=== PATIENT | female | born 1990 | race Native Hawaiian/Other Pacific Islander ===

== ENCOUNTER 2017-11-28 08:07 | Inpatient (IN) | payer SELFPAY ==
[2017-11-28] VITALS (43 sets, daily range): BP systolic 89–125; BP diastolic 52–93; PULSE 63–96; RESP 16–18; TEMP 97.7–98.5; O2SAT 96–98
[~2017-11-28] VITALS: Ht 165.1 cm; Wt 84.0 kg
[~2017-11-28 08:07] MED LIST: PREN0.01 PO
[2017-11-28] MEDS ORDERED: TERBUTALINE INJ 1 MG/ML AMP ONE (08:42)
[2017-11-28] MEDS ORDERED: fentaNYL 2MCG-BUPIV 0.125% INJ 100 ML ONE ×2 (08:43→12:16)
[2017-11-28 09:14] LABS: BILIRUBIN, URINE NEG (NEG); BLOOD, URINE NEG (NEG); GLUCOSE,URINE NEG (NEG); KETONE, URINE NEG (NEG); MUCUS URINE FEW /lpf (OCC); NITRITE,URINE NEG (NEG); SQUAMOUS EPITHELIAL CELL URINE 2 /hpf (0-5); URINE COLOR LIGHT-YELLOW (YELLW/STRAW); URINE LEUKOCYTE ESTERASE MOD (NEG)
[2017-11-28 09:15] LABS: BASOPHIL % 0.3 % (0.0-2.0); EOSINOPHIL # 0.1 TH/MM3 (0-0.4); EOSINOPHIL % 0.7 % (0.0-4.0); HEMATOCRIT 38.2 % (35.0-46.0); HEMOGLOBIN 12.8 GM/DL (11.6-15.3); LYMPHOCYTE # 1.8 TH/MM3 (1.0-4.8); MEAN CELL VOLUME 83.3 FL (80.0-100.0); MEAN CORPUSCULAR HGB CONC 33.6 % (32.0-36.0); MEAN PLATELET VOLUME 9.9 FL (7.0-11.0); MONO % 6.8 % (0.0-8.0); MONOCYTE # 0.6 TH/MM3 (0-0.9); NEUT % 71.2 % (16.0-70.0); PLATELET COUNT 216 TH/MM3 (150-450); RED BLOOD COUNT 4.59 MIL/MM3 (4.00-5.30); RED CELL DISTRIBUTION WIDTH 13.4 % (11.6-17.2); WHITE BLOOD COUNT 8.4 TH/MM3 (4.0-11.0)
--- NOTE | 2017-11-28 09:56 | PD.OB.ANTE ---
Subjective Interval History 27 yo muslum at 38 weeks with polyhydramnios brought in by Dr. Armstrong for attempted version. Marked polyhydramnios in office yesterday with pita breech. This was only her 2nd visit with us; care had shelia in [facility]. However her first and delivery were with us 3 years ago-- healthy boy but that also had polyhyramdnios. Glucola normal and GBS neg. Today prior to version bed side sonogram shows vertex floating. Strip category one. Feeling well. No contractions, leaking or bleeding. normotensive and no DSOUZA, N, V , Blurred vision. Objective Lab & Micro Results Test 11/28/17 08:30 White Blood Count 8.4 TH/MM3 Red Blood Count 4.59 MIL/MM3 Hemoglobin 12.8 GM/DL Hematocrit 38.2 % Mean Corpuscular Volume 83.3 FL Mean Corpuscular Hemoglobin 28.0 PG Mean Corpuscular Hemoglobin Concent 33.6 % Red Cell Distribution Width 13.4 % Platelet Count 216 TH/MM3 Mean Platelet Volume 9.9 FL Neutrophils (%) (Auto) 71.2 % Lymphocytes (%) (Auto) 21.0 % Monocytes (%) (Auto) 6.8 % Eosinophils (%) (Auto) 0.7 % Basophils (%) (Auto) 0.3 % Neutrophils # (Auto) 6.0 TH/MM3 Lymphocytes # (Auto) 1.8 TH/MM3 Monocytes # (Auto) 0.6 TH/MM3 Eosinophils # (Auto) 0.1 TH/MM3 Basophils # (Auto) 0.0 TH/MM3 CBC Comment DIFF FINAL Differential Comment Urine Color LIGHT-YELLOW Urine Turbidity CLEAR Urine pH 6.0 Urine Specific [place] 1.010 Urine Protein NEG mg/dL Urine Glucose (UA) NEG mg/dL Urine Ketones NEG mg/dL Urine Occult Blood NEG Urine Nitrite NEG Urine Bilirubin NEG Urine Urobilinogen LESS THAN 2.0 MG/DL Urine Leukocyte Esterase MOD Urine RBC LESS THAN 1 /hpf Urine WBC 3 /hpf Urine Squamous Epithelial Cells 2 /hpf Urine Mucus FEW /lpf Microscopic Urinalysis Comment CULT NOT INDICATED Urine Opiates Screen NEG Urine Barbiturates Screen NEG Urine Amphetamines Screen NEG Urine Benzodiazepines Screen NEG Urine Cocaine Screen NEG Urine Cannabinoids Screen NEG Physical Exam GENERAL: Well-nourished, well-developed patient. CARDIOVASCULAR: Regular rate and rhythm without murmurs, gallops, or rubs. RESPIRATORY: Breath sounds equal bilaterally. No accessory muscle use. ABDOMEN/GI: Abdomen soft, non-tender. FH 41 ballotable and longitudinal lie sono vertex strip category one arom clear and infant well applied before leaving room 3/50% -3 efw is 7 pounds pelvis proven EXTREMITIES: No cyanosis or edema, non-tender, without signs of DVT. Assessment and Plan Assessment and Plan anticipate pitocin and epidural as needed. Keara Fisher MD Nov 28, 2017 09:56
--- NOTE | 2017-11-28 09:59 | HHI.HP ---
HPI Chief Complaint Version Travel History International Travel<30 Days: Yes Contact w/Intl Traveler<30Days: Yes Known Affected Area: No History of Present Illness HPI Pt is a 27 yo with iup at 37w6 with polyhydramnios seen in office on and noted to be pita breech. She had been cephalic on prior exam. She received care in [facility], min records received. She did deliver with us last . She feels good movement, irreg ctx, no vb or lof. 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 Fisher Past Surgical History Surgical History: No Previous Surgery Family History Family History: Negative Social History Alcohol Use: No Tobacco Use: No Substance Abuse: No Allergies-Medications (Allergen,Severity, Reaction): Coded Allergies: No Known Allergies (Unverified , 11/26/14) Home Meds Reported Medications Multivit/Min/Fol Ac/Iron/Pren ( Vit ( Plus)) Tab, 1 TAB PO DAILY, TAB 11/24/14 Review of Systems General / Constitutional: No: Fever, Weight Gain, Chills, Other Eyes: No: Diploplia, Blurred Vision, Visual changes, Pain, Photophobia HENT: No: Headaches, Vertigo, Lightheadedness Cardiovascular: No: Irregular Rhythm, Chest Pain or Discomfort, Palpitations, Tachycardia, Syncope, Varicosities, Edema, Cyanosis Respiratory: No: Cough, Short of Breath, Other Gastrointestinal: No: Nausea, Vomiting, Diarrhea Genitourinary: No: Decreased Urinary Output, Oliguria Musculoskeletal: No: Limited ROM, Weakness, Cramping, Edema, Pain Skin: No Rash, No Itching, No Dryness, No Lumps, No Change in Pigmentation, No Change in Nails, No Alopecia, No Lesions Neurologic: No: Weakness, Dizziness, Syncope, Focal Abnormalities, Coordination Problem, Headache, Slurred Speech, Seizures Psychiatric: No: Depression, Suicidal Ideations, Homicidal Ideation Endocrine: No: Heat Intolerance, Cold Intolerance, Polydipsia, Polyuria, Other Physical Exam Narrative GENERAL: Well-nourished, well-developed patient. SKIN: Warm and dry. HEAD: Normocephalic and atraumatic. EYES: No scleral icterus. No injection or drainage. ENT: No nasal drainage noted. Mucous membranes pink. Airway patent. NECK: Supple, trachea midline. No JVD. CARDIOVASCULAR: Regular rate and rhythm without murmurs, gallops, or rubs. RESPIRATORY: Breath sounds equal bilaterally. No accessory muscle use. ABDOMEN/GI: Abdomen soft, non-tender, bowel sounds present, no rebound, no guarding Gravid to 39weeks size Fundal Height: [-] GENITOURINARY: External Genitalia: intact and normal in appearance BUS glands: [-] Cervix:1-2//-3 Presentation:pita breech Membranes: [intact Uterine Contractions: [-] FHT's: wnl. U/S GA 37w6d, EDC 12/11/17 EFW 7lb 1 oz (c/w pt stated edc of 12/12/16 ) EXTREMITIES: No cyanosis or edema. BACK: Nontender without obvious deformity. No CVA tenderness. NEUROLOGICAL: Awake and alert. Motor and sensory grossly within normal limits. Five out of 5 muscle strength in all muscle groups. Normal speech. Caprini VTE Risk Assessment Caprini VTE Risk Assessment: No/Low Risk (score <= 1) Caprini Risk Assessment Model Point Value = 1 Point Value = 2 Point Value = 3 Point Value = 5 Age 41-60 Minor surgery BMI > 25 kg/m2 Swollen legs Varicose veins or History of unexplained or recurrent spontaneous Oral contraceptives or hormone replacement Sepsis (< 1 month) Serious lung disease, including pneumonia (< 1 month) Abnormal pulmonary function Acute myocardial infarction Congestive heart failure (< 1 month) History of inflammatory bowel disease Medical patient at bed rest Age 61-74 Arthroscopic surgery Major open surgery (> 45 min) Laparoscopic surgery (> 45 min) Malignancy Confined to bed (> 72 hours) Immobilizing plaster cast Central venous access Age >= 75 History of VTE Family history of VTE Factor V Leiden Prothrombin [id number] Lupus anticoagulant Anticardiolipin antibodies Elevated serum homocysteine Heparin-induced thrombocytopenia Other congenital or acquired thrombophilia Stroke (< 1 month) Elective arthroplasty Hip, pelvis, or leg fracture Acute spinal cord injury (< 1 month) Prophylaxis Regimen Total Risk Factor Score Risk Level Prophylaxis Regimen 0-1 Low Early ambulation 2 Moderate Order ONE of the following: *Sequential Compression Device (SCD) *Heparin 5000 units SQ BID 3-4 Higher Order ONE of the following medications: *Heparin 5000 units SQ TID *Enoxaparin/Lovenox 40 mg SQ daily (WT < 150 kg, CrCl > 30 mL/min) *Enoxaparin/Lovenox 30 mg SQ daily (WT < 150 kg, CrCl > 10-29 mL/min) *Enoxaparin/Lovenox 30 mg SQ BID (WT < 150 kg, CrCl > 30 mL/min) AND/OR *Sequential Compression Device (SCD) 5 or more Highest Order ONE of the following medications: *Heparin 5000 units SQ TID (Preferred with Epidurals) *Enoxaparin/Lovenox 40 mg SQ daily (WT < 150 kg, CrCl > 30 mL/min) *Enoxaparin/Lovenox 30 mg SQ daily (WT < 150 kg, CrCl > 10-29 mL/min) *Enoxaparin/Lovenox 30 mg SQ BID (WT < 150 kg, CrCl > 30 mL/min) AND *Sequential Compression Device (SCD) Data Data Vital Signs Reviewed: Yes Orders Orders Terbutaline Inj (Brethine Inj) (11/28/17 08:42) Fentanyl Inj (Fentanyl Inj) (11/28/17 08:43) Ob (2e) Additional Admit Info (11/28/17 08:42) Fentanyl 2mcg-Bupiv 0.125% Inj (Fentanyl (11/28/17 08:43) Fentanyl Inj (Fentanyl Inj) (11/28/17 08:50) Urinalysis - C+S If Indicated (11/28/17 08:52) Specimen To Be Collected PRN (11/28/17 08:52) Ob/Psych Drug Screen, Urine (11/28/17 08:52) Complete Blood Count With Diff (11/28/17 08:52) Rubella Immune Status (11/28/17 08:52) Hepatitis Profile (11/28/17 08:52) Rapid Plasma Regin (Rpr) W Ttr (11/28/17 08:52) Type And Screen (11/28/17 08:52) No Care Spec Serology (11/28/17 08:52) Vital Signs (Adult) .ON ADMISSION (11/28/17 08:57) Activity Oob Ad Lore (11/28/17 08:57) Heart (11/28/17 08:57) Urinary Catheter Management SHON.Q8H (11/28/17 08:57) ^ Preps (11/28/17 08:57) Scd / [place] / Foot Pump SHON.QSHIFT (11/28/17 08:57) ^ Ultrasound For Locatio (11/28/17 08:57) Diet Npo (11/28/17 Breakfast) Fentanyl Inj (Fentanyl Inj) (11/28/17 09:08) Group B Strep: Negative Labs Laboratory Tests Test 11/28/17 08:30 White Blood Count 8.4 Red Blood Count 4.59 Hemoglobin 12.8 Hematocrit 38.2 Mean Corpuscular Volume 83.3 Mean Corpuscular Hemoglobin 28.0 Mean Corpuscular Hemoglobin Concent 33.6 Red Cell Distribution Width 13.4 Platelet Count 216 Mean Platelet Volume 9.9 Neutrophils (%) (Auto) 71.2 Lymphocytes (%) (Auto) 21.0 Monocytes (%) (Auto) 6.8 Eosinophils (%) (Auto) 0.7 Basophils (%) (Auto) 0.3 Neutrophils # (Auto) 6.0 Lymphocytes # (Auto) 1.8 Monocytes # (Auto) 0.6 Eosinophils # (Auto) 0.1 Basophils # (Auto) 0.0 CBC Comment DIFF FINAL Differential Comment Urine Color LIGHT-YELLOW Urine Turbidity CLEAR Urine pH 6.0 Urine Specific [place] 1.010 Urine Protein NEG Urine Glucose (UA) NEG Urine Ketones NEG Urine Occult Blood NEG Urine Nitrite NEG Urine Bilirubin NEG Urine Urobilinogen LESS THAN 2.0 Urine Leukocyte Esterase MOD Urine RBC LESS THAN 1 Urine WBC 3 Urine Squamous Epithelial Cells 2 Urine Mucus FEW Microscopic Urinalysis Comment CULT NOT INDICATED Urine Opiates Screen NEG Urine Barbiturates Screen NEG Urine Amphetamines Screen NEG Urine Benzodiazepines Screen NEG Urine Cocaine Screen NEG Urine Cannabinoids Screen NEG Assessment/Plan Problem List: (1) Polyhydramnios affecting in third trimester ICD Codes: O40.3XX0 - Polyhydramnios, third trimester, not applicable or unspecified (2) Pita breech presentation ICD Codes: O32.1XX0 - Maternal care for breech presentation, not applicable or unspecified Assessment and Plan 27 yo with iup at 37w6d by stated EDC c/w u/s today. 1) polyhdramios and unstable lie- discussed ECV vs primary cd as polyhydramnios is indication for delivery at term. She desires ECV. Discussed risks of srom, cord prolapse, nrfht, and potential need for stat cd. Aware that she will have u/s prior to any intervention and that there is a possibility that she may be cephalic again. If that is the case, we will proceed with AROM and iol. Version scheduled w Dr. Fisher as she has more expertise in performing versions. 2) Limited records received from [facility]- will get pnl on admission 3) GBS negative 4) HSV- on valtrex prophy, no lesions or prodrome on exam 5) Fetus- EFW 7 lb on u/s, posterior placenta. June Ma MD Nov 28, 2017 09:59
[2017-11-28] MEDS ORDERED: OXYTOCIN 30 UNITS-500ML PREMIX 500 ML IV PRN (10:00)
[2017-11-28] MEDS ORDERED: NS 500 ML BOLUS IV PRN (11:00)
[2017-11-28] MEDS ORDERED: NS 1000 ML IV PRN (11:00)
[2017-11-28] MEDS ORDERED: CITRIC ACID-SODIUM CITRATE LIQ 30 ML UDC PO SCH (11:00)
[2017-11-28] MEDS ORDERED: OXYTOCIN 30 UNITS 500ML PREMIX IV ONE (11:00)
[2017-11-28] MEDS ORDERED: LIDOCAINE HCL 1% 50 ML VIAL I-DERMAL PRN (11:00)
[2017-11-28] MEDS ORDERED: LACTATED RINGER'S 1000 ML BOLUS IV PRN (11:00)
[2017-11-28] MEDS ORDERED: MINERAL OIL 10 ML VIAL TOPICAL PRN (11:00)
[2017-11-28] MEDS ORDERED: LACTATED RINGER'S 1000 ML IV SCH (11:00)
[2017-11-28] MEDS ORDERED: LIDOCAINE HCL 1% 50 ML VIAL INFIL PRN (11:00)
[2017-11-28] MEDS ORDERED: ePHEDrine/NS 25 MG/5 ML SYRINGE ONE ×2 (12:13→13:40)
[2017-11-28] MEDS ORDERED: LIDOCAINE 2%/EPINEPHrine PF 1:200,000 20ML SDV ONE (13:04)
[2017-11-28] MEDS ORDERED: NO SYSTEM NARCOTICS PRN (14:00)
[2017-11-28] MEDS ORDERED: fentaNYL 2MCG-BUPIV 0.125% 100 ML EPIDURAL SCH (14:00)
[2017-11-28] MEDS ORDERED: ePHEDrine/NS 25 MG/5 ML SYRINGE IV PUSH PRN (14:00)
[2017-11-28] MEDS ORDERED: VALT500T PO (14:00)
[2017-11-28] MEDS ORDERED: DO NOT ADMINISTER ANTICOAGULANTS PRN (14:00)
[2017-11-28] MEDS ORDERED: MORPHINE SULFATE PF 5 MG/10 ML VIAL ONE (14:44)
[2017-11-28] MEDS ORDERED: ACETAMINOPHEN 1000 MG/100 ML 100 ML IV ONE ×2 (14:44→17:00)
[2017-11-28] MEDS ORDERED: MEPERIDINE HCL 25 MG/ML VIAL ONE (14:55)
--- NOTE | 2017-11-28 15:43 | RADRPT ---
EXAM DATE/TIME: 11/28/2017 15:00 [place] COMPARISON: No previous studies available for comparison. INDICATIONS : Instrument count- Emergency . MEDICAL HISTORY : None. SURGICAL HISTORY : None. ENCOUNTER: Initial ACUITY: 1 day PAIN SCORE: Non-responsive. LOCATION: Abdomen. FINDINGS: Examination of the abdomen demonstrates a normal bowel gas pattern. No free air is identified. Radio paque instruments. There is a wire projected over the lower right thorax and right abdomen extending down to L3. CONCLUSION: No radiopaque instruments. rFank Louise MD on November 28, 2017 at 15:39 Board Certified Radiologist. This report was verified electronically.
--- NOTE | 2017-11-28 15:57 | PD.LABORPN ---
Subjective Subjective At 2:30 she was comfortable with epidural UCs were 2-3 and mild strip was category 1 cervix was 3+ with elbow presenting minimal uterine tone and vertex at 3 oclock Vertex was moved in clockwise fashion as elbow and shoulder pushed up from below with 45 degree rotation sono than placed at heart and no activity of 30 sec seen. stat section called. Objective Vital Signs Vital Signs Date Time Temp Pulse Resp B/P (MAP) Pulse Ox O2 Delivery O2 Flow Rate FiO2 11/28/17 15:45 72 18 97/52 (67) 11/28/17 15:30 75 18 106/70 (82) 11/28/17 15:30 97.7 11/28/17 14:15 18 11/28/17 14:10 68 11/28/17 14:05 79 11/28/17 14:00 18 11/28/17 14:00 75 11/28/17 14:00 68 96/64 (75) 11/28/17 13:46 68 109/67 (81) 11/28/17 13:45 72 11/28/17 13:45 88 107/68 (81) 11/28/17 13:45 18 11/28/17 13:42 89/52 (64) 11/28/17 13:42 73 11/28/17 13:40 72 11/28/17 13:35 71 11/28/17 13:30 76 16 106/68 (81) 11/28/17 13:30 68 11/28/17 13:25 78 11/28/17 13:20 80 11/28/17 13:15 75 11/28/17 13:15 74 112/65 (81) 11/28/17 13:12 16 11/28/17 13:10 80 107/74 (85) 11/28/17 13:10 76 11/28/17 13:05 81 11/28/17 13:05 74 100/55 (70) 11/28/17 13:00 76 11/28/17 13:00 98.5 16 11/28/17 13:00 73 101/60 (74) 11/28/17 12:55 75 104/62 (76) 11/28/17 12:55 77 11/28/17 12:50 76 11/28/17 12:50 80 105/71 (82) 11/28/17 12:48 96 120/93 (102) 11/28/17 12:45 75 11/28/17 12:45 85 125/79 (94) 11/28/17 12:45 16 11/28/17 12:40 71 11/28/17 12:30 67 111/75 (87) 11/28/17 12:30 16 11/28/17 12:15 16 11/28/17 12:15 67 112/78 (89) 11/28/17 12:00 71 120/80 (93) 11/28/17 11:45 16 11/28/17 11:30 65 105/71 (82) 11/28/17 11:15 98.4 16 11/28/17 11:15 68 106/76 (86) 11/28/17 11:00 76 100/72 (81) 11/28/17 10:45 16 11/28/17 10:45 83 103/80 (88) 11/28/17 10:30 76 117/71 (86) 11/28/17 10:15 16 11/28/17 10:15 74 100/68 (79) 11/28/17 10:13 74 95/66 (76) 11/28/17 10:07 72 113/75 (88) Objective Pelvic Exam: Cervix: [-] Dilatation: [-] Effacement: [-] Station: [-] Presentation: [-] Membranes: [intact or ruptured] Uterine Contractions: [-] FHT's: Category: [-] Baseline: [-] Reactive: [-] Variability: [-] Decels: [-] Weeks Gestation: 37 Assessment/Plan Problem List: (1) Polyhydramnios affecting in third trimester ICD Codes: O40.3XX0 - Polyhydramnios, third trimester, not applicable or unspecified (2) Chetan breech presentation ICD Codes: O32.1XX0 - Maternal care for breech presentation, not applicable or unspecified Keara Fisher MD Nov 28, 2017 15:57
--- NOTE | 2017-11-28 16:01 | PD.OB.DELI ---
Procedure Note Section Procedure Pre Op Diagnosis: (1) Cephalic version (2) distress affecting care Post Op Diagnosis: (1) Delivered by section (2) Placental abruption Performed by Keara Fisher Procedure: Primary Low Transverse Sec Indication for delivery: Nonreassuring heart tracing Informed consent obtained: For anesthesia, For procedure Confirmed correct: Patient, Procedure, Site, Time-out taken Anesthesia: Epidural Medication prior to procedure: As documented in eMAR Monitoring during procedure: Blood pressure monitoring, multiple spindle router operator, doppler Urinary catheter: Inserted using sterile technique, To dependent drainage, ml urine output Sterile preparation: In usual fashion Position: Supine with wedge to right side Operative Features Skin Incision: Pfannenstiel Uterine Incision: Low transverse w/knife / blunt ext Membranes Ruptured: Previously Presentation: Compound Delivery date: Nov 28, 2017 Delivery time: 16:01 Delivery of infant: Assisted : Female One Minute : 8 Five Minute : 9 Weight: 66 5 Status of : Viable, Cord blood, Umbilical cord, Nursery present Placenta delivered: Intact Medications: Antibiotics, Oxytocin Estimated blood loss: 500 Maternal Condition: Stable Condition: Stable (dictated) Keara Fisher MD Nov 28, 2017 16:01
[2017-11-28] MEDS ORDERED: ZOLPIDEM TARTRATE 5 MG TAB PO PRN (16:15)
[2017-11-28] MEDS ORDERED: SIMETHICONE 80 MG CHEWABLE TAB PO PRN (16:15)
[2017-11-28] MEDS ORDERED: oxyCODONE/ACETAMINOPHEN 5 MG/325 MG TAB PO PRN (16:15)
[2017-11-28] MEDS ORDERED: SODIUM CHLORIDE 0.9% FLUSH 10 ML FLUSH IV FLUSH PRN (16:15)
[2017-11-28] MEDS ORDERED: ONDANSETRON HCL 4 MG/2 ML VIAL IV PUSH PRN (16:15)
[2017-11-28] MEDS ORDERED: DOCUSATE SODIUM 50 MG/SENNA 8.6 MG TAB PO PRN (16:15)
[2017-11-28] MEDS ORDERED: OXYTOCIN 30 UNITS-500ML PREMIX 500 ML IV ONE (17:00)
[2017-11-28] MEDS: diphenhydrAMINE HCL 25 MG CAP PO PRN (20:03)
[2017-11-28] MEDS: IBUPROFEN 600 MG TAB PO PRN (20:03)
[2017-11-28] MEDS ORDERED: SODIUM CHLORIDE 0.9% FLUSH 10 ML FLUSH IV FLUSH SCH (21:00)
[2017-11-28] MEDS: LACTATED RINGER'S 1000 ML INJ 1,000 ML IV SCH (21:14)
[2017-11-29] VITALS (11 sets, daily range): BP systolic 88–110; BP diastolic 51–67; PULSE 61–86; RESP 16–18; TEMP 98–98.8; O2SAT 97–99
[2017-11-29] MEDS: diphenhydrAMINE HCL 25 MG CAP PO PRN (01:58)
[2017-11-29] MEDS ORDERED: OXYTOCIN 30 UNITS-500ML PREMIX 500 ML IV PRN (02:15)
[2017-11-29] MEDS: IBUPROFEN 600 MG TAB PO PRN ×3 (05:17→22:37)
[2017-11-29 05:54] LABS: AUTOMATED NEUTROPHIL # 11.2 TH/MM3 (1.8-7.7); BASOPHIL % 0.1 % (0.0-2.0); EOSINOPHIL % 0.1 % (0.0-4.0); HEMATOCRIT 29.8 % (35.0-46.0); HEMOGLOBIN 10.2 GM/DL (11.6-15.3); LYMPH % 11.2 % (9.0-44.0); LYMPHOCYTE # 1.5 TH/MM3 (1.0-4.8); MEAN CELL VOLUME 83.9 FL (80.0-100.0); MEAN CORPUSCULAR HEMOGLOBIN 28.6 PG (27.0-34.0); MEAN CORPUSCULAR HGB CONC 34.1 % (32.0-36.0); MEAN PLATELET VOLUME 9.2 FL (7.0-11.0); MONO % 5.8 % (0.0-8.0); MONOCYTE # 0.8 TH/MM3 (0-0.9); NEUT % 82.8 % (16.0-70.0); PLATELET COUNT 171 TH/MM3 (150-450); RED BLOOD COUNT 3.56 MIL/MM3 (4.00-5.30); RED CELL DISTRIBUTION WIDTH 13.2 % (11.6-17.2); WHITE BLOOD COUNT 13.5 TH/MM3 (4.0-11.0)
[2017-11-29] MEDS: LACTATED RINGER'S 1000 ML INJ 1,000 ML IV SCH (06:21)
--- NOTE | 2017-11-29 08:09 | HHI.OB ---
Subjective Post Operative Day: 1 Remarks no complaints, breast and bottle feeding Objective Vitals/I&O Vital Signs Date Time Temp Pulse Resp B/P (MAP) Pulse Ox O2 Delivery O2 Flow Rate FiO2 11/29/17 04:00 98.0 16 97 11/29/17 04:00 61 94/54 (67) 11/29/17 00:00 69 110/56 (74) 11/29/17 00:00 98.0 66 16 109/67 (81) 97 11/28/17 20:00 97.9 72 18 124/73 (90) 96 11/28/17 17:59 75 112/73 (86) 11/28/17 17:59 98.0 16 97 11/28/17 17:00 73 16 107/69 (82) 98 11/28/17 16:45 80 16 102/64 (77) 98 11/28/17 16:30 97/56 (70) 11/28/17 16:30 64 16 97 11/28/17 16:15 97 11/28/17 16:15 63 16 105/65 (78) 11/28/17 16:00 79 18 94/57 (69) 97 11/28/17 15:45 98 11/28/17 15:45 72 18 97/52 (67) 11/28/17 15:30 98 11/28/17 15:30 75 18 106/70 (82) 11/28/17 15:30 97.7 11/28/17 14:15 18 11/28/17 14:10 68 11/28/17 14:05 79 11/28/17 14:00 18 11/28/17 14:00 75 11/28/17 14:00 68 96/64 (75) 11/28/17 13:46 68 109/67 (81) 11/28/17 13:45 72 11/28/17 13:45 88 107/68 (81) 11/28/17 13:45 18 11/28/17 13:42 89/52 (64) 11/28/17 13:42 73 11/28/17 13:40 72 11/28/17 13:35 71 11/28/17 13:30 76 16 106/68 (81) 11/28/17 13:30 68 11/28/17 13:25 78 11/28/17 13:20 80 3/29/18 13:15 75 11/28/17 13:15 74 112/65 (81) 11/28/17 13:12 16 11/28/17 13:10 80 107/74 (85) 11/28/17 13:10 76 11/28/17 13:05 81 11/28/17 13:05 74 100/55 (70) 11/28/17 13:00 76 11/28/17 13:00 98.5 16 11/28/17 13:00 73 101/60 (74) 11/28/17 12:55 75 104/62 (76) 11/28/17 12:55 77 11/28/17 12:50 76 11/28/17 12:50 80 105/71 (82) 11/28/17 12:48 96 120/93 (102) 11/28/17 12:45 75 11/28/17 12:45 85 125/79 (94) 11/28/17 12:45 16 11/28/17 12:40 71 11/28/17 12:30 67 111/75 (87) 11/28/17 12:30 16 11/28/17 12:15 16 11/28/17 12:15 67 112/78 (89) 11/28/17 12:00 71 120/80 (93) 11/28/17 11:45 16 11/28/17 11:30 65 105/71 (82) 11/28/17 11:15 98.4 16 11/28/17 11:15 68 106/76 (86) 11/28/17 11:00 76 100/72 (81) 11/28/17 10:45 16 11/28/17 10:45 83 103/80 (88) 11/28/17 10:30 76 117/71 (86) 11/28/17 10:15 16 11/28/17 10:15 74 100/68 (79) 11/28/17 10:13 74 95/66 (76) 11/28/17 10:07 72 113/75 (88) Result Diagram: 11/29/17 0543 Objective Remarks GENERAL: Well-nourished, well-developed patient. CARDIOVASCULAR: Regular rate and rhythm without murmurs, gallops, or rubs. RESPIRATORY: Breath sounds equal bilaterally. No accessory muscle use. ABDOMEN/GI: Abdomen soft, non-tender, bowel sounds present. Incision: dressing Clean, dry and intact. Fundus: Firm, non-tender at umbilicus. GENITOURINARY: Light to moderate bleeding. EXTREMITIES: No cyanosis or edema, non-tender, without signs of DVT. Medications and IVs Current Medications Medications (Trade) Dose Ordered Sig/Jayne Route Start Time Stop Time Status Last Admin Oxytocin 500 ml @ 0 mls/hr TITRATE PRN IV 11/28/17 10:00 11/28/17 11:04 (Bicitra Liq) 30 ml OPTICAL INSTRUMENT REPAIRER PO 11/28/17 11:00 12/01/17 10:59 (Muri-Lube Oil) 10 ml UNSCH PRN TOPICAL 11/28/17 11:00 Cefazolin Sodium 2000 mg/Sodium Chloride 100 ml @ 200 mls/hr OPTICAL INSTRUMENT REPAIRER IV 11/28/17 12:45 12/01/17 12:44 Miscellaneous Information No systemic narcotics to be given except... UNSCH PRN .XX 11/28/17 14:00 11/29/17 13:59 Miscellaneous Information DO NOT ADMINISTER ANY ANTICOAGUL... UNSCH PRN .XX 11/28/17 14:00 11/29/17 13:59 Fentanyl/ Bupivacaine HCl 100 ml @ 0 mls/hr TITRATE EPIDURAL 11/28/17 14:00 (ePHEDrine/NS 25 MG/5 ML SYR) 10 mg UNSCH PRN IV PUSH 11/28/17 14:00 11/29/17 13:59 Lactated Ringer's 1,000 ml @ 100 mls/hr Q10H IV 11/28/17 21:02 11/29/17 17:01 11/28/17 21:14 Oxytocin 500 ml @ 100 mls/hr UNSCH X1 PRN IV 11/29/17 02:15 11/30/17 02:14 (NS Flush) 2 ml BID IV FLUSH 11/28/17 21:00 (NS Flush) 2 ml UNSCH PRN IV FLUSH 11/28/17 16:15 (Mylicon Chew) 80 mg QID PRN PO 11/28/17 16:15 (Motrin) 600 mg Q6H PRN PO 11/28/17 16:15 11/29/17 05:17 (Percocet 5-325 Mg) 1 tab Q4H PRN PO 11/28/17 16:15 (Percocet 5-325 Mg) 2 tab Q4H PRN PO 11/28/17 16:15 11/28/17 21:14 (Rehana-Colace) 2 tab Q12H PRN PO 11/28/17 16:15 (Ambien) 5 mg HS PRN PO 11/28/17 16:15 (M-M-R Ii Inj) 0.5 ml ONCE ONCE SQ 11/29/17 16:00 11/29/17 16:01 (Boostrix Inj) 0.5 ml ONCE ONCE IM 11/29/17 16:00 11/29/17 16:01 (Zofran Inj) 4 mg Q6H PRN IV PUSH 11/28/17 16:15 (Benadryl) 25 mg Q6H PRN PO 11/28/17 20:00 11/29/17 01:58 Assessment/Plan Problem List: (1) Polyhydramnios affecting in third trimester ICD Codes: O40.3XX0 - Polyhydramnios, third trimester, not applicable or unspecified (2) Chetan breech presentation ICD Codes: O32.1XX0 - Maternal care for breech presentation, not applicable or unspecified (3) Delivered by section ICD Codes: Z38.01 - Single liveborn , delivered by Assessment and Plan 27 yo with iup at 37w6d by stated EDC c/w u/s today. 1) polyhdramios and unstable lie- discussed ECV vs primary cd as polyhydramnios is indication for delivery at term. She desires ECV. Discussed risks of srom, cord prolapse, nrfht, and potential need for stat cd. Aware that she will have u/s prior to any intervention and that there is a possibility that she may be cephalic again. If that is the case, we will proceed with AROM and iol. Version scheduled w Dr. Fisher as she has more expertise in performing versions. 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 S/P PRIMARY C SECTION POD #1 Discharge Planning routine Attending Attestation pt seen by Abbi Cervantes MD Nov 29, 2017 08:09
[2017-11-29] MEDS ORDERED: MEASLES, MUMPS, RUBELLA VACCINE 0.5 ML VIAL SQ ONE (16:00)
[2017-11-29] MEDS ORDERED: DIPHTH/TETANUS/ACEL PERTUSSIS (BOOSTER) 0.5 ML VIAL/PFS IM ONE (16:00)
[2017-11-30 08:00] VITALS: BP 90/69; PULSE 71; RESP 20; TEMP 97.7; O2SAT 100
[2017-11-30] MEDS: IBUPROFEN 600 MG TAB PO PRN ×3 (10:33→23:05)
[2017-11-30] MEDS: oxyCODONE/ACETAMINOPHEN 5 MG/325 MG TAB PO PRN ×3 (11:13→23:05)
--- NOTE | 2017-11-30 16:17 | HHI.OB ---
Subjective Post Operative Day: 2 Remarks Doing well Bleeding and pain are ok Baby is doing well. Objective Vitals/I&O Vital Signs Date Time Temp Pulse Resp B/P (MAP) Pulse Ox O2 Delivery O2 Flow Rate FiO2 11/30/17 08:00 97.7 71 20 90/69 (76) 100 11/29/17 22:32 98.8 98 11/29/17 22:32 98.2 99 11/29/17 22:32 76 18 98/62 (74) 11/29/17 20:31 98.0 86 18 94/62 (73) 11/29/17 18:10 72 18 11/29/17 18:10 94/61 (72) 11/29/17 17:02 89/58 (68) 11/29/17 17:02 98.4 74 18 98 Result Diagram: 11/29/17 0543 Objective Remarks GENERAL: Well-nourished, well-developed patient. CARDIOVASCULAR: Regular rate and rhythm without murmurs, gallops, or rubs. RESPIRATORY: Breath sounds equal bilaterally. No accessory muscle use. ABDOMEN/GI: Abdomen soft, non-tender, bowel sounds present. Incision: dressing Clean, dry and intact. Fundus: Firm, non-tender at umbilicus. GENITOURINARY: Light to moderate bleeding. EXTREMITIES: No cyanosis or edema, non-tender, without signs of DVT. Medications and IVs Current Medications Medications (Trade) Dose Ordered Sig/Jayne Route Start Time Stop Time Status Last Admin Oxytocin 500 ml @ 0 mls/hr TITRATE PRN IV 11/28/17 10:00 11/28/17 11:04 (Bicitra Liq) 30 ml ACOUSTIC INTELLIGENCE SPECIALIST PO 11/28/17 11:00 12/01/17 10:59 (Muri-Lube Oil) 10 ml UNSCH PRN TOPICAL 11/28/17 11:00 Cefazolin Sodium 2000 mg/Sodium Chloride 100 ml @ 200 mls/hr ACOUSTIC INTELLIGENCE SPECIALIST IV 11/28/17 12:45 12/01/17 12:44 Fentanyl/ Bupivacaine HCl 100 ml @ 0 mls/hr TITRATE EPIDURAL 11/28/17 14:00 (NS Flush) 2 ml BID IV FLUSH 11/28/17 21:00 (NS Flush) 2 ml UNSCH PRN IV FLUSH 11/28/17 16:15 (Mylicon Chew) 80 mg QID PRN PO 11/28/17 16:15 11/29/17 15:08 (Motrin) 600 mg Q6H PRN PO 11/28/17 16:15 11/30/17 10:33 (Percocet 5-325 Mg) 1 tab Q4H PRN PO 11/28/17 16:15 11/30/17 11:13 (Percocet 5-325 Mg) 2 tab Q4H PRN PO 11/28/17 16:15 11/28/17 21:14 (Rehana-Colace) 2 tab Q12H PRN PO 11/28/17 16:15 (Ambien) 5 mg HS PRN PO 11/28/17 16:15 (Zofran Inj) 4 mg Q6H PRN IV PUSH 11/28/17 16:15 (Benadryl) 25 mg Q6H PRN PO 11/28/17 20:00 11/29/17 01:58 Assessment/Plan Problem List: (1) Polyhydramnios affecting in third trimester ICD Codes: O40.3XX0 - Polyhydramnios, third trimester, not applicable or unspecified (2) Chetan breech presentation ICD Codes: O32.1XX0 - Maternal care for breech presentation, not applicable or unspecified (3) Delivered by section ICD Codes: Z38.01 - Single liveborn infant, delivered by Assessment and Plan POD #2 Doing well, Routine care Discharge Planning routine Kameron Quintero MD Nov 30, 2017 16:17
[2017-11-30] MEDS ORDERED: OXYC1TAB63 PO (16:20)
[2017-11-30] MEDS ORDERED: IBUP-232 PO (16:20)
--- NOTE | 2017-11-30 16:23 | HHI.DS ---
Admission Date Nov 28, 2017 at 08:07 Admitting Diagnosis Diagnosis: Delivery Date: Nov 28, 2017 Infant: Female Brief History Pt is a 27 yo with iup at 37w6 with polyhydramnios seen in office on and noted to be pita breech. She had been cephalic on prior exam. She received care in [facility], min records received. She did deliver with us last . She feels good movement, irreg ctx, no vb or lof. Pt Condition on Discharge: Good Discharge Disposition: Discharge Home Discharge Instructions Diet Instructions: As Tolerated, No Restrictions Activities You Can Perform: Shower Only-No Bath, Pelvic Rest Activities to Avoid: Strenuous Activity, Bathing, Sexual Activity Follow up Referrals: [facility] - 1 Week @ [facility] New Medications: Ibuprofen (Ibuprofen) 600 Mg Tab 600 MG PO Q6H PRN for CRAMPING, #30 TAB Oxycodone HCl/Acetaminophen (Oxycodone-Acetaminophen 5-325) 5 Mg-325 Mg Tablet 1-2 TAB PO Q4H PRN for moderate pain, #30 TAB Continued Medications: Multivit/Min/Fol Ac/Iron/Pren ( Vit ( Plus)) 27 Mg Iron-1 Mg Tab 1 TAB PO DAILY, TAB Discontinued Medications: Valacyclovir (Valtrex) 500 Mg Tab 500 MG PO BID for Mgmt Viral Infection, #60 TAB 0 Refills Kameron Quintero MD Nov 30, 2017 16:23
[2017-11-30 21:06] VITALS: BP 85/65; PULSE 91; RESP 18; TEMP 98.7
[2017-12-01 07:30] VITALS: BP 103/68; PULSE 66; RESP 16; TEMP 97.8
[2017-12-01] MEDS: IBUPROFEN 600 MG TAB PO PRN (08:26)
[2017-12-01] MEDS: oxyCODONE/ACETAMINOPHEN 5 MG/325 MG TAB PO PRN (08:26)
--- NOTE | 2017-12-01 10:49 | HHI.OB ---
Subjective Post Operative Day: 3 Remarks doing well nursing pain controlled Objective Vitals/I&O Vital Signs Date Time Temp Pulse Resp B/P (MAP) Pulse Ox O2 Delivery O2 Flow Rate FiO2 12/01/17 07:30 66 103/68 (80) 12/01/17 07:30 97.8 16 11/30/17 21:06 98.7 91 18 85/65 (72) Result Diagram: 11/29/17 0543 Objective Remarks GENERAL: Well-nourished, well-developed patient. CARDIOVASCULAR: Regular rate and rhythm without murmurs, gallops, or rubs. RESPIRATORY: Breath sounds equal bilaterally. No accessory muscle use. ABDOMEN/GI: Abdomen soft, non-tender, bowel sounds present. Incision: dressing Clean, dry and intact. Fundus: Firm, non-tender at umbilicus. GENITOURINARY: Light to moderate bleeding. EXTREMITIES: No cyanosis or edema, non-tender, without signs of DVT. Medications and IVs Current Medications Medications (Trade) Dose Ordered Sig/Jayne Route Start Time Stop Time Status Last Admin Oxytocin 500 ml @ 0 mls/hr TITRATE PRN IV 11/28/17 10:00 11/28/17 11:04 (Bicitra Liq) 30 ml DOOR CLAMPER PO 11/28/17 11:00 12/01/17 10:59 (Muri-Lube Oil) 10 ml UNSCH PRN TOPICAL 11/28/17 11:00 Cefazolin Sodium 2000 mg/Sodium Chloride 100 ml @ 200 mls/hr DOOR CLAMPER IV 11/28/17 12:45 12/01/17 12:44 Fentanyl/ Bupivacaine HCl 100 ml @ 0 mls/hr TITRATE EPIDURAL 11/28/17 14:00 (NS Flush) 2 ml BID IV FLUSH 11/28/17 21:00 (NS Flush) 2 ml UNSCH PRN IV FLUSH 11/28/17 16:15 (Mylicon Chew) 80 mg QID PRN PO 11/28/17 16:15 11/29/17 15:08 (Motrin) 600 mg Q6H PRN PO 11/28/17 16:15 12/01/17 08:26 (Percocet 5-325 Mg) 1 tab Q4H PRN PO 11/28/17 16:15 12/01/17 08:26 (Percocet 5-325 Mg) 2 tab Q4H PRN PO 11/28/17 16:15 11/28/17 21:14 (Rehana-Colace) 2 tab Q12H PRN PO 11/28/17 16:15 11/30/17 20:53 (Ambien) 5 mg HS PRN PO 11/28/17 16:15 (Zofran Inj) 4 mg Q6H PRN IV PUSH 11/28/17 16:15 (Benadryl) 25 mg Q6H PRN PO 11/28/17 20:00 11/29/17 01:58 Assessment/Plan Problem List: (1) Polyhydramnios affecting in third trimester ICD Codes: O40.3XX0 - Polyhydramnios, third trimester, not applicable or unspecified (2) Chetan breech presentation ICD Codes: O32.1XX0 - Maternal care for breech presentation, not applicable or unspecified (3) Delivered by section ICD Codes: Z38.01 - Single liveborn , delivered by Assessment and Plan POD #2 Doing well, Routine care POD #3 Doing well home with 30 percocet RTO 1 weeks Discharge Planning routine Keara Fisher MD Dec 01, 2017 10:49
[2017-12-01] MEDS ORDERED: OXYC1TAB63 PO (10:50)
== END 2017-12-01 11:44 | disposition home or self-care (01) | DRG 765 ==
LOC: H2EB 08:07 → OBSVTOIN 08:07 → H1EA 17:17
PROVIDERS: ADMIT Obstetrics & Gynecology; ATTEND Obstetrics & Gynecology
PROC: 10D00Z1 Extraction of Products of Conception, Low, Open Approach (ICD-10-PCS; principal; 2017-11-28)
PROC: 00HU33Z Insertion of Infusion Device into Spinal Canal, Percutaneous Approach (ICD-10-PCS; 2017-11-28)
PROC: 3E0R3BZ Introduction of Anesthetic Agent into Spinal Canal, Percutaneous Approach (ICD-10-PCS; 2017-11-28)
DX: O32.1XX0 Maternal care for breech presentation, not applicable or unspecified (principal); O45.93 Premature separation of placenta, unspecified, third trimester; O40.3XX0 Polyhydramnios, third trimester, not applicable or unspecified; O76 Abnormality in fetal heart rate and rhythm complicating labor and delivery; Z37.0 Single live birth; Z3A.37 37 weeks gestation of pregnancy; Z23 Encounter for immunization
CPT/HCPCS: 74018; 80307; 81001; 85025; 86850; 86900; 86901; G0481; J0131; J2175; J2274; J2590; J3010; J3105; J7120